=== PATIENT | female | born 1955 | race Caucasian/White ===

== ENCOUNTER 2018-12-03 09:45 | Outpatient (CLI) | payer BC ==
--- NOTE | 2018-12-03 10:46 | MMO ---
BILATERAL MAMMOGRAMS: DATE: 12/03/18 HISTORY: Screening mammography. COMPARISON: Multiple exams back to 06/23/13. FINDINGS: Scattered fibroglandular densities and benign-appearing calcifications. Intramammary lymph nodes are stable. No new dominant mass or suspicious calcifications. The study was evaluated with the assistance of computer-aided detection. IMPRESSION: BIRADS 2: Benign Finding(s) Suggest routine follow-up. POS: NARGIS
== END 2018-12-03 09:46 | disposition home or self-care (01) ==
LOC: SCSMAMMO 09:45
PROVIDERS: ATTEND Internal Medicine
DX: Z12.31 Encounter for screening mammogram for malignant neoplasm of breast (principal)
CPT/HCPCS: 77067